=== PATIENT | female | born 1980 | race African-American/Black ===

== ENCOUNTER 2024-01-29 15:18 | Inpatient (IN) | payer OTHER ==
[2024-01-29 17:13] VITALS: BMI 29.2
[2024-01-29] MEDS ORDERED: DICYCLOMINE HCL 10 MG CAPSULE PO PRN (18:01)
[2024-01-29] MEDS ORDERED: BENZOCAINE/MENTHOL (CHLORASEPTIC ) LOZENGE MM PRN (18:01)
[2024-01-29] MEDS ORDERED: guaiFENesin 600 MG TABLET.ER (FP) PO PRN (18:01)
[2024-01-29] MEDS ORDERED: POLYETHYLENE GLYCOL (HEALTHYLAX) 3350 17 GM PACKET PO PRN (18:01)
[2024-01-29] MEDS ORDERED: METHOCARBAMOL 500 MG TABLET PO PRN (18:01)
[2024-01-29] MEDS ORDERED: LOPERAMIDE HCL 2 MG CAPSULE PO PRN (18:01)
[2024-01-29] MEDS ORDERED: IBUPROFEN 400 MG TABLET (FP) PO PRN (18:01)
[2024-01-29] MEDS ORDERED: ONDANSETRON *ODT* 4 MG TABLET SL PRN (18:01)
[2024-01-29] MEDS ORDERED: MAG HYDROX/AL HYDROX/SIMETH 30 ML UNIT-DOSE CUP PO PRN (18:01)
[2024-01-29] MEDS ORDERED: BISMUTH SUBSALICYLATE 524 MG/30 ML PO PRN (18:01)
[2024-01-29] MEDS ORDERED: BENZONATATE 200 MG CAPSULE PO PRN (18:01)
[2024-01-29] MEDS ORDERED: METOPROLOL TARTRATE 25 MG TABLET (FP) ONE (18:45)
[2024-01-29] MEDS ORDERED: diazePAM 5 MG TABLET ONE (18:45)
[2024-01-29] MEDS: METOPROLOL TARTRATE 25 MG TABLET (FP) PO ONE (18:48)
[2024-01-29] MEDS: diazePAM 5 MG TABLET PO PRN (18:48)
[2024-01-29] MEDS: P-EPHED 60MG/TRIPROLIDI 2.5MG TABLET PO PRN (20:22)
[2024-01-29] MEDS: PNEUMOC 20-VAL CONJ-DIP CRM/PF 0.5 ML SYRINGE IM ONE (21:42)
[2024-01-29] MEDS: FLU VACCINE (FLULAVAL) PF 60 MCG/0.5 ML SYRINGE 2023-2024 IM ONE (21:43)
[2024-01-29] MEDS: MELATONIN 5 MG TABLETS PO SCH (22:30)
[2024-01-29] MEDS: THIAMINE HCL 100 MG TABLET (FP) PO SCH (22:30)
[2024-01-29] MEDS: diazePAM 5 MG TABLET PO SCH (22:32)
[2024-01-29] MEDS: LETROZOLE 2.5 MG TABLET (FP) PO SCH (23:07)
[2024-01-29] MEDS: propRANOLol HCL 10 MG TABLET PO ONE (23:43)
[2024-01-30] MEDS: LEVOTHYROXINE NA 112 MCG TABLET (FP) PO SCH (07:54)
[2024-01-30] MEDS: PRENATAL VITAMINS W/ FOLIC ACID TABLET (FP) PO SCH (10:19)
[2024-01-30] MEDS: MAGNESIUM HYDROX 2400MG/30ML ORAL SUSPENSION 30 ML CUP PO PRN (10:44)
[2024-01-30] MEDS: FLU VACCINE (FLULAVAL) PF 60 MCG/0.5 ML SYRINGE 2023-2024 IM ONE (11:14)
[2024-01-30] MEDS: PNEUMOC 20-VAL CONJ-DIP CRM/PF 0.5 ML SYRINGE IM ONE (11:15)
[2024-01-30 15:00] LABS: HEMATOCRIT 43.9 % (32.4-45.2); HEMOGLOBIN 14.4 GM/dL (10.7-15.3); MCH 28.2 pg (25.7-33.7); MCHC 32.9 g/dl (32.0-36.0); MEAN CELL VOLUME 85.7 fl (80-96); MEAN PLT VOLUME 8.2 fl (7.5-11.1); PLATELET COUNT 310 10^3/uL (134-434); RBC 5.12 M/mm3 (3.60-5.2); RDW 14.9 % (11.6-15.6); WHITE BLOOD COUNT 4.2 K/mm3 (4.0-10.0)
[2024-01-30 15:02] LABS: CHLORIDE 100 mmol/L (98-107); SODIUM 138 mmol/L (136-145)
[2024-01-30 15:11] LABS: ALBUMIN 3.9 g/dl (3.4-5.0); ANION GAP 5 mmol/L (4-13); CO2 32 mmol/L (21-32); GLUCOSE,RANDOM 76 mg/dL (74-106)
[2024-01-30 15:14] LABS: CREATININE 0.8 mg/dL (0.55-1.3); SGPT/ALT 26 U/L (13-61)
[2024-01-30 15:15] LABS: SGOT/AST 26 U/L (15-37); TOT PROT 7.7 g/dl (6.4-8.2)
[2024-01-30 15:16] LABS: BILIRUBIN,TOTAL 0.8 mg/dL (0.2-1)
[2024-01-30 15:17] LABS: ALK PHOS 143 U/L (45-117)
[2024-01-30] MEDS: IBUPROFEN 600 MG TABLET (FP) PO PRN (22:36)
[2024-01-31] MEDS: diazePAM 5 MG TABLET PO SCH (05:28)
[2024-02-01] MEDS: diazePAM 5 MG TABLET PO SCH (05:34)
[2024-02-01] MEDS: ACETAMINOPHEN 325 MG TABLET (FP) PO PRN (22:17)
[2024-02-02] MEDS: diazePAM 5 MG TABLET PO ONE (05:27)
[2024-02-02 09:27] VITALS: BP 104/83; PULSE 119; RESP 20; TEMP 97.6
== END 2024-02-02 11:30 | disposition home or self-care (01) | DRG 897 ==
LOC: YASAS 15:18 → Y6N 19:37
PROVIDERS: ADMIT Allergy & Immunology; ATTEND Surgery
PROC: HZ2ZZZZ Detoxification Services for Substance Abuse Treatment (ICD-10-PCS; principal; 2024-01-29)
DX: F10.230 Alcohol dependence with withdrawal, uncomplicated (principal); E03.9 Hypothyroidism, unspecified; G47.00 Insomnia, unspecified; Z85.3 Personal history of malignant neoplasm of breast; Z90.13 Acquired absence of bilateral breasts and nipples; Z86.59 Personal history of other mental and behavioral disorders
CPT/HCPCS: 36415; 80053; 80305; 80307; 81025; 84702; 85027; 86780; 90677; 90686; 93005; 93010; G0008